=== PATIENT | female | born 1990 | race Caucasian/White ===

== ENCOUNTER 2018-01-22 07:09 | Emergency (ER) | payer SELFPAY ==
[~2018-01-22] VITALS: Ht 162.6 cm; Wt 55.2 kg
[2018-01-22 07:12] VITALS: TEMP 37.2; Ht 162.6 cm; Wt 55.2 kg
[2018-01-22] MEDS ORDERED: ONDANSETRON INJ 2 MG/ML 2 ML VIAL IV STA (07:25)
[2018-01-22] MEDS ORDERED: SODIUM CHLORIDE 0.9% 1000ML 2,000 ML IV STA (07:25)
[2018-01-22] MEDS ORDERED: KETOROLAC TROMETHAMINE 30 MG/ML VIAL IV STA (07:51)
[2018-01-22 08:08] LABS: BASO % 0.3 %; BASO ABS # 0.03 K/uL (0-0.2); EOS % 0.6 %; EOS ABS # 0.06 K/uL (0-0.5); HEMATOCRIT 42.4 % (37-47); HEMOGLOBIN 14.6 g/dL (12.0-16.0); IG# 0.03 K/uL (0.00-0.02); LYMPH % 15.6 %; LYMPH ABS # 1.63 K/uL (1.2-3.4); MEAN CELL VOLUME 89.5 fL (80-100); MEAN CORPUSCULAR HEMOGLOBIN 30.8 pg (25-34); MEAN CORPUSCULAR HGB CONC 34.4 g/dl (32-36); MEAN PLATELET VOLUME 10.5 fL (7.4-10.4); MONO % 3.8 %; NEUT % 79.4 %; PLATELET COUNT 229 K/uL (130-400); RED CELL DISTRIBUTION WIDTH CV 12.7 % (11.5-14.5); RED CELL DISTRIBUTION WIDTH SD 41.4 fL (36.4-46.3); WHITE BLOOD COUNT 10.45 K/uL (4.8-10.8)
[2018-01-22 08:27] LABS: ALBUMIN 4.2 gm/dl (3.4-5.0); CALCIUM 9.2 mg/dl (8.5-10.1); CREATININE 0.76 mg/dl (0.60-1.20); POTASSIUM 3.9 mmol/L (3.5-5.1); TOTAL PROTEIN 7.4 gm/dl (6.4-8.2)
[2018-01-22] MEDS ORDERED: PROMETHAZINE HCL INJ 12.5 MG in SODIUM CHLORIDE 0.9% 50ML 50 ML IV STA (08:40)
--- NOTE | 2018-01-22 08:43 | DIAGNOSTIC IMAGING REPORT ---
CHEST AND ABDOMEN 2 VIEWS HISTORY: Nausea. Vomiting. Diarrhea. COMPARISON: None. FINDINGS: The lungs are clear. The cardiomediastinal silhouette is within normal limits. There is no pneumoperitoneum or pneumatosis. The bowel gas pattern is unremarkable. No evidence for bowel obstruction. No renal or ureteral calculi. IMPRESSION: No acute cardiopulmonary process. No evidence for bowel obstruction. Electronically signed by: Lazaro Mendoza M.D. 01/22/2018 8:42 AM Dictated Date/Time: 01/22/2018 8:41 AM
[2018-01-22] MEDS ORDERED: FENTANYL CITRATE INJ 50 MCG/1 ML 2 ML VIAL IV ONE (08:45)
[2018-01-22] MEDS ORDERED: MoRPHine SULFATE 4 MG/ML 1 ML CARP\\VIAL IV STA (09:27)
[2018-01-22] MEDS ORDERED: DiphenhydrAMINE HCL 50 MG/ML VIAL IV STA (11:02)
[2018-01-22] MEDS ORDERED: SODIUM CHLORIDE 0.9% 1000ML 1,000 ML IV STA (11:02)
[2018-01-22] MEDS ORDERED: PROCHLORPERAZINE 5 MG/ML 2 ML VIAL IV STA (11:02)
[2018-01-22 12:10] VITALS: BP 122/77; PULSE 62; O2SAT 100
[2018-01-22] MEDS ORDERED: PROM25TA9 PO (12:13)
[2018-01-22] MEDS ORDERED: ONDA4TAB10 SL (12:13)
--- NOTE | 2018-01-22 12:14 | EMERGENCY ROOM VISIT NOTE ---
ED Visit Note First contact with patient: 07:16 CHIEF COMPLAINT: Nausea, vomiting, diarrhea and abdominal pain x 2 days HISTORY OF PRESENT ILLNESS: Patient is an otherwise healthy 27-year-old female who presents the emergency department for evaluation of abdominal pain, nausea, vomiting and diarrhea. She states her symptoms started about 1-2 days ago with abdominal pain and nausea. She reports mid abdominal pain that she presently rates a 10/10. Vomiting and diarrhea started this morning. She reports multiple episodes of both. She denies any melena, hematochezia or hematemesis. No documented fevers. No urinary symptoms. She has a history of kidney stones but states that this does not feel similar. 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 She denies any unusual food or water consumption, recent foreign travel or recent antibiotic use. REVIEW OF SYSTEMS: Review of systems as per HPI. All other systems reviewed were negative. 10 systems reviewed. PMH: Electronic medical records are reviewed and summarized as above/below. See Problem List. SOCIAL HISTORY: Patient lives with a roommate in an apartment. Smoker, also uses marijuana occasionally. Recently moved from [place]. PHYSICAL EXAM: Vital Signs: Reviewed Nurse's notes. CONSTITUTIONAL: Patient is an uncomfortable appearing 27-year-old female who is awake and alert and actively vomiting/retching when I enter the exam room. A female friend is at the bedside. EYES: Pupils equal, round, reactive to light and accommodation. EOMs intact without nystagmus. Sclera are anicteric. ENT: Tympanic membranes intact, with normal landmarks. External canals are clear. Oral and nasopharynx are clear. Mucous membranes are moist, no lesions , tongue and gums appear normal. CARDIOVASCULAR: Regular rate and rhythm, with normal S1 and S2, no murmur or gallop or rub is heard. No carotid bruits auscultated. No JVD. Peripheral pulses easily palpable. RESPIRATORY: Breath sounds equal and clear to auscultation without wheezes, rales, or rhonchi heard. Full and equal chest expansion without accessory muscle use or retractions. ABDOMEN: Bowel sounds are present. Abdomen is soft, nondistended, diffusely tender throughout, without guarding, rebound or rigidity. INTEGUMENTARY: No lesions or rash, normal skin turgor. LYMPH: No lymphadenopathy. EMERGENCY DEPARTMENT COURSE: IV lock was initiated and laboratory studies were collected. She was given a 2 L bolus of normal saline solution and medicated with Zofran 4 mg IV. Laboratory studies were collected including CBC with differential, CMP and lipase. Serum hCG was also performed. The patient requested something for pain and was given Toradol 30 mg IV. Acute abdominal series was obtained. Patient returned from x-ray and requesting something additional for pain and ongoing vomiting. She specifically requested morphine stating that is what she had received previously in [place] which had worked well for her. She was given fentanyl 50 mcg IV and Phenergan 12.5 mg IV. Patient's laboratory studies are completely benign. White count is not elevated. H&H is normal. Electrolytes are without significant abnormality. Renal function is normal. Transaminases and pancreatic enzymes are not elevated. Serum hCG is negative. Patient was reassessed and made aware of the results of all of her laboratory and diagnostic imaging studies. She complained of ongoing pain, and at this point was given morphine 4 mg IV. She was able to get up and give a urine sample. Urine dip noted moderate ketones, despite 2 L of IV fluids. Formal urine microscopy notes 3+ ketones, and 2+ occult blood, likely contamination from her menses, otherwise clear without signs of infection. She was given an additional 1 L bolus of normal saline solution. She had an additional episode of bilious vomiting and was given Compazine 10 mg and Benadryl 25 mg IV. The patient was again reassessed, and was resting comfortably in the room. She had been able to sleep, and had no further vomiting. She had no diarrhea in the emergency department therefore a stool sample was not able to be collected for analysis. Supportive care measures were discussed with the patient. She did request something additional for pain prior to discharge, which I politely declined. Given her benign workup and benign abdominal exam at this time, it was not felt that any additional diagnostic imaging studies were indicated. She was encouraged to rest at home, follow a clear liquid diet, and was provided antiemetics that she can use for any ongoing nausea. She was welcome to return to the emergency department for persistent symptoms at which further workup may be indicated. The patient was discharged to home with a female friend in stable condition. Vitals were normal when last checked. She did not wait for her discharge instructions prior to being discharged. Differential diagnoses entertained included infectious versus inflammatory colitis/enteritis, food borne illness, bowel obstruction, pancreatitis, biliary colic, gastritis, esophagitis, cannabinoid related hyperemesis, , ectopic , UTI, pyelonephritis, among others. Medication reconciliation: I attest that I have personally reviewed the patient' s current medication list. Blood pressure screening : Patient was found to have normal blood pressure on screening and does not require follow-up. Patient was reviewed in the [facility] Prescription Drug Monitoring Program, and there were no red flags noted. I was also able to review her [place] with no worrisome findings. CHEST AND ABDOMEN 2 VIEWS HISTORY: Nausea. Vomiting. Diarrhea. COMPARISON: None. FINDINGS: The lungs are clear. The cardiomediastinal silhouette is within normal limits. There is no pneumoperitoneum or pneumatosis. The bowel gas pattern is unremarkable. No evidence for bowel obstruction. No renal or ureteral calculi. IMPRESSION: No acute cardiopulmonary process. No evidence for bowel obstruction. Problem List Medical Problems: (1) Kidney stones Status: Resolved Surgical Problems: (1) History of hand surgery Status: Resolved Current/Historical Medications Scheduled PRN Ondasetron Odt (Zofran Odt), 4 MG SL Q4 PRN for Nausea or Vomiting Promethazine Hcl (Phenergan), 25 MG PO Q4H PRN for Nausea Allergies Coded Allergies: No Known Allergies (Unverified , 01/22/18) Vital Signs Date Time Temp Pulse Resp B/P (MAP) Pulse Ox O2 Delivery O2 Flow Rate FiO2 01/22/18 12:10 62 18 122/77 100 Room Air 01/22/18 11:11 53 16 130/77 98 Room Air 01/22/18 09:41 74 18 105/62 98 Room Air 01/22/18 08:35 55 16 112/77 100 Room Air 01/22/18 07:12 37.2 62 18 124/70 98 Room Air Laboratory Results 01/22/18 07:55 Red Blood Count 4.74, Mean Corpuscular Volume 89.5, Mean Corpuscular Hemoglobin 30.8, Mean Corpuscular Hemoglobin Concent 34.4, Mean Platelet Volume 10.5, Neutrophils (%) (Auto) 79.4, Lymphocytes (%) (Auto) 15.6, Monocytes (%) (Auto) 3.8, Eosinophils (%) (Auto) 0.6, Basophils (%) (Auto) 0.3, Neutrophils # (Auto) 8.30, Lymphocytes # (Auto) 1.63, Monocytes # (Auto) 0.40, Eosinophils # (Auto) 0.06, Basophils # (Auto) 0.03 01/22/18 07:55 Test 01/22/18 07:55 01/22/18 10:25 White Blood Count 10.45 K/uL (4.8-10.8) Red Blood Count 4.74 M/uL (4.2-5.4) Hemoglobin 14.6 g/dL (12.0-16.0) Hematocrit 42.4 % (37-47) Mean Corpuscular Volume 89.5 fL (80-100) Mean Corpuscular Hemoglobin 30.8 pg (25-34) Mean Corpuscular Hemoglobin Concent 34.4 g/dl (32-36) Platelet Count 229 K/uL (130-400) Mean Platelet Volume 10.5 fL (7.4-10.4) Neutrophils (%) (Auto) 79.4 % Lymphocytes (%) (Auto) 15.6 % Monocytes (%) (Auto) 3.8 % Eosinophils (%) (Auto) 0.6 % Basophils (%) (Auto) 0.3 % Neutrophils # (Auto) 8.30 K/uL (1.4-6.5) Lymphocytes # (Auto) 1.63 K/uL (1.2-3.4) Monocytes # (Auto) 0.40 K/uL (0.11-0.59) Eosinophils # (Auto) 0.06 K/uL (0-0.5) Basophils # (Auto) 0.03 K/uL (0-0.2) RDW Standard Deviation 41.4 fL (36.4-46.3) RDW Coefficient of Variation 12.7 % (11.5-14.5) Immature Granulocyte % (Auto) 0.3 % Immature Granulocyte # (Auto) 0.03 K/uL (0.00-0.02) Anion Gap 9.0 mmol/L (3-11) Est Creatinine Clear Calc Drug Dose 96.1 ml/min Estimated GFR () 124.6 Estimated GFR (Non- 107.5 BUN/Creatinine Ratio 20.6 (10-20) Calcium Level 9.2 mg/dl (8.5-10.1) Total Bilirubin 0.6 mg/dl (0.2-1) Aspartate Amino Transf (AST/SGOT) 22 U/L (15-37) Alanine Aminotransferase (ALT/SGPT) 20 U/L (12-78) Alkaline Phosphatase 36 U/L (45-117) Total Protein 7.4 gm/dl (6.4-8.2) Albumin 4.2 gm/dl (3.4-5.0) Globulin 3.2 gm/dl (2.5-4.0) Albumin/Globulin Ratio 1.3 (0.9-2) Lipase 96 U/L (73-393) Human Chorionic Gonadotropin, Qual NEG (NEG) Urine Color YELLOW Urine Appearance CLEAR (CLEAR) Urine pH 6.0 (4.5-7.5) Urine Specific [place] 1.017 (1.000-1.030) Urine Protein NEG (NEG) Urine Glucose (UA) NEG (NEG) Urine Ketones 3+ (NEG) Urine Occult Blood 2+ (NEG) Urine Nitrite NEG (NEG) Urine Bilirubin NEG (NEG) Urine Urobilinogen NEG (NEG) Urine Leukocyte Esterase NEG (NEG) Urine WBC (Auto) 1-5 /hpf (0-5) Urine RBC (Auto) 0-4 /hpf (0-4) Urine Hyaline Casts (Auto) 1-5 /lpf (0-5) Urine Epithelial Cells (Auto) 10-20 /lpf (0-5) Urine Bacteria (Auto) NEG (NEG) Medications Administered Medications (Trade) Dose Ordered Sig/Stacey Route Start Time Stop Time Status Last Admin Dose Admin Sodium Chloride 2,000 ml @ 999 mls/hr Q2H1M STAT IV 01/22/18 07:25 01/22/18 09:25 DC 01/22/18 07:50 999 MLS/HR Ondansetron HCl (Zofran Inj) 4 mg NOW STAT IV 01/22/18 07:25 01/22/18 07:28 DC 01/22/18 07:50 4 MG Ketorolac Tromethamine (Toradol Inj) 30 mg NOW STAT IV 01/22/18 07:51 01/22/18 07:52 DC 01/22/18 07:55 30 MG Promethazine HCl 12.5 mg/Sodium Chloride 50.5 ml @ 204 mls/hr NOW STAT IV 01/22/18 08:40 01/22/18 08:54 DC 01/22/18 08:58 204 MLS/HR Fentanyl Citrate (Fentanyl Inj) 50 mcg NOW ONCE IV 01/22/18 08:45 01/22/18 08:46 DC 01/22/18 08:46 50 MCG Morphine Sulfate (MoRPHine SULFATE INJ) 4 mg NOW STAT IV 01/22/18 09:27 01/22/18 09:28 DC 01/22/18 09:41 4 MG Prochlorperazine Edisylate (Compazine Inj) 10 mg NOW STAT IV 01/22/18 11:02 01/22/18 11:03 DC 01/22/18 11:14 10 MG Diphenhydramine HCl (Benadryl Inj) 25 mg NOW STAT IV 01/22/18 11:02 01/22/18 11:03 DC 01/22/18 11:13 25 MG Sodium Chloride 1,000 ml @ 999 mls/hr Q1H1M STAT IV 01/22/18 11:02 01/22/18 12:02 DC 01/22/18 11:14 999 MLS/HR Departure Information Impression Primary Impression: Nausea, vomiting and diarrhea Prescriptions Promethazine Hcl (Phenergan) 25 Mg Tab 25 MG PO Q4H Y for Nausea, #10 TAB Prov: Jessica Ruano PA 01/22/18 Ondasetron Odt (ZOFRAN ODT) 4 Mg Tab 4 MG SL Q4 Y for Nausea or Vomiting, #10 TAB Prov: Jessica Ruano PA 01/22/18 Referrals No Doctor, Assigned (PCP) Patient Instructions [facility] Additional Instructions DO NOT drive, drink alcohol, operate machinery, or perform dangerous activities today. You were given medications in the ER that can affect your ability to safely function or operate a vehicle. Acetaminophen(Tylenol) may be used for fever or pain. Use 1000mg every eight hours as needed. Avoid using more than 3000mg in a 24 hour period. This is available over the counter. Zofran(odansetron) tablets 4mg: Take one and allow it to dissolve in your mouth every four hours as needed for nausea or vomiting. Phenergan(promethazine) tablets 25mg: Take one every six hours as needed for nausea. Avoid alcohol, operating machinery or dangerous equipment, working on ladders or roofs, DRIVING, or situations where being under the influence may be dangerous. Read all the package inserts or medication information paperwork provided. If you have any questions or concerns call your primary provider, pharmacist or the ER for assistance. Rest and drink plenty of fluids as tolerated. Slow sips of water or sports drinks are recommended instead of large amounts all at once. Continue current medications. Once your stomach is settled start with a clear liquid diet (jello, soup broth, etc.) and then advance as tolerated. You should avoid full, heavy meals for about 24 hrs from the time your symptoms resolved. Return to the ER immediately for worsening or persistent abdominal pain, vomiting, fevers, chest pains, difficulty breathing, black or bloody stools, worsening of your condition, or as needed. Follow up with your primary physician in 1-2 days for a recheck of your current condition.
== END 2018-01-22 12:20 | disposition home or self-care (01) ==
LOC: C.EDB 07:11 → C.EDA 12:20
DX: R11.2 Nausea with vomiting, unspecified (principal); R19.7 Diarrhea, unspecified; F12.90 Cannabis use, unspecified, uncomplicated

== ENCOUNTER 2018-01-22 19:01 | Emergency (ER) | payer SELFPAY ==
[~2018-01-22] VITALS: Ht 162.6 cm; Wt 57.0 kg
[~2018-01-22 19:01] MED LIST: ONDA4TAB10 SL; PROM25TA9 PO
[2018-01-22 19:05] VITALS: BP 132/72; PULSE 60; TEMP 37.3; O2SAT 100; Ht 162.6 cm; Wt 57.0 kg
[2018-01-22] MEDS ORDERED: DiphenhydrAMINE HCL 50 MG/ML VIAL IV STA (19:27)
[2018-01-22] MEDS ORDERED: KETOROLAC TROMETHAMINE 30 MG/ML VIAL IV STA (19:27)
[2018-01-22] MEDS ORDERED: PROCHLORPERAZINE 5 MG/ML 2 ML VIAL IV STA (19:27)
[2018-01-22] MEDS ORDERED: SODIUM CHLORIDE 0.9% 1000ML 1,000 ML IV ONE (19:30)
[2018-01-22] MEDS ORDERED: OPTIRAY 320 IV PRN (19:45)
[2018-01-22 20:16] LABS: HEMATOCRIT 40.5 % (37-47); HEMOGLOBIN 14.1 g/dL (12.0-16.0); IG# 0.01 K/uL (0.00-0.02); LYMPH % 15.7 %; LYMPH ABS # 1.27 K/uL (1.2-3.4); MEAN CELL VOLUME 89.2 fL (80-100); MEAN CORPUSCULAR HEMOGLOBIN 31.1 pg (25-34); MEAN CORPUSCULAR HGB CONC 34.8 g/dl (32-36); MEAN PLATELET VOLUME 10.7 fL (7.4-10.4); MONO % 5.1 %; MONO ABS # 0.41 K/uL (0.11-0.59); NEUT % 79.1 %; NEUT ABS # 6.42 K/uL (1.4-6.5); PLATELET COUNT 182 K/uL (130-400); RED CELL DISTRIBUTION WIDTH CV 12.9 % (11.5-14.5); RED CELL DISTRIBUTION WIDTH SD 41.8 fL (36.4-46.3); WHITE BLOOD COUNT 8.11 K/uL (4.8-10.8)
[2018-01-22 20:54] LABS: ALBUMIN 4.1 gm/dl (3.4-5.0); CALCIUM 8.9 mg/dl (8.5-10.1); CREATININE 0.79 mg/dl (0.60-1.20); TOTAL PROTEIN 7.4 gm/dl (6.4-8.2)
[2018-01-22] MEDS ORDERED: METOCLOPRAMIDE HCL INJ 5 MG/ML 2 ML VIAL IV. STA (21:03)
--- NOTE | 2018-01-22 21:37 | DIAGNOSTIC IMAGING REPORT ---
CT ABD/PELVIS IV CONTRAST ONLY CLINICAL HISTORY: Nausea, vomiting, abdominal pain. COMPARISON STUDY: None. TECHNIQUE: Following the IV administration of 119 mL of [id number]-320, CT scan of the abdomen and pelvis was performed from the lung bases to the proximal femurs. Images are reviewed in the axial, sagittal, and coronal planes. IV contrast was administered without complication. A dose lowering technique was utilized adhering to the principles of ALARA. CT DOSE: 269.31 mGy.cm FINDINGS: Lower chest: The heart is normal in size and configuration, without pericardial effusion. The lung bases and pleural spaces are clear. Liver: There is mild periportal edema, possibly secondary to aggressive hydration. There is slight inhomogeneous hepatic enhancement. No focal masses are evident.. Gallbladder: No calculi are visualized. There is no gallbladder wall thickening. There is minor pericholecystic edema. Spleen: Normal in size and attenuation. Pancreas: Unremarkable. Adrenal glands: Unremarkable. Kidneys: There is symmetric renal cortical enhancement. The kidneys are normal in size without hydronephrosis. Bowel: There are no transition zones indicate bowel obstruction. There are no findings to indicate acute appendicitis. Peritoneum: There is a small amount of free pelvic fluid. No free intraperitoneal air is visualized. Vasculature: The abdominal aorta is normal in course and caliber. Adenopathy: None. Pelvic viscera: There is a 3 cm left ovarian cyst likely functional. Skeletal structures: No destructive osseous lesions are seen. IMPRESSION: 1. Slightly heterogeneous hepatic enhancement but no focal masses identified 2. Periportal edema possibly secondary to hydration 3. No evidence of bowel obstruction. No evidence of free air 4. No evidence of acute appendicitis 5. 3 cm left ovarian cyst likely functional 6. Small amount of free pelvic fluid Electronically signed by: Abdoul Cheema M.D. 01/22/2018 9:36 PM Dictated Date/Time: 01/22/2018 9:30 PM
--- NOTE | 2018-01-22 23:22 | EMERGENCY ROOM VISIT NOTE ---
History First contact with patient: 19:11 Chief Complaint: ABDOMINAL PAIN Stated Complaint: VOMITING ABN PAIN Nursing Triage Summary: Pt reports she was here this morning with left sided abdominal pain and vomiting. Pt remains with same. History of Present Illness The patient is a 27 year old female who presents to the Emergency Room with complaints of generalized abdominal pain, nausea, and vomiting. She rates her current discomfort a 9/10. The patient was seen here at this facility earlier today, where she had lab work and plain films performed that were essentially normal. She was given antiemetics and pain medication and felt much better at the time of her discharge. The patient states that a few hours later her pain medication wore off, and her symptoms returned. She has not had fever or chills. She is having difficulty tolerating food or fluids because of the nausea and vomiting. The patient states that her symptoms are now back to where they were earlier today. She has had similar episodes like this in the past. She does not have a primary care physician locally as she recently moved to the area. Review of Systems More than 10 systems were reviewed and otherwise negative with the exception of history of present illness. Past Medical/Surgical History Medical Problems: (1) Kidney stones (2) No Known Active Medical Problems Surgical Problems: (1) History of hand surgery Family History No pertinent family history Social History Smoking Status: Current Every Day Smoker Housing Status: lives with friends Current/Historical Medications Scheduled PRN Ondasetron Odt (Zofran Odt), 4 MG SL Q4 PRN for Nausea or Vomiting Promethazine Hcl (Phenergan), 25 MG PO Q4H PRN for Nausea Physical Exam Vital Signs Date Time Temp Pulse Resp B/P (MAP) Pulse Ox O2 Delivery O2 Flow Rate FiO2 18 19:05 37.3 60 20 132/72 100 Room Air Physical Exam VITALS: Vitals are noted on the nurse's note and reviewed by myself. Vital signs stable. GENERAL: White female who appears in no acute distress MOUTH: Mucous membranes moist. Tonsils are not enlarged. Pharynx without erythema, blood, or exudate. Uvula midline. Airway patent. NECK: Supple without nuchal rigidity. No lymphadenopathy. No thyromegaly. Cervical spine is nontender. HEART: Regular rate and rhythm without murmurs gallops or rubs. LUNGS: Clear to auscultation bilaterally without wheezes, rales or rhonchi. No retractions or accessory muscle use. ABDOMEN: Positive normal bowel sounds x 4. Soft, nontender, without masses or organomegaly. No guarding or rebound tenderness. MUSCULOSKELETAL: No muscle atrophy, erythema, or edema noted. Full range of motion in all extremities. Medical Decision & Procedures ER Provider Diagnostic Interpretation: CT ABD/PELVIS IV CONTRAST ONLY CLINICAL HISTORY: Nausea, vomiting, abdominal pain. COMPARISON STUDY: None. TECHNIQUE: Following the IV administration of 119 mL of Optiray-320, CT scan of the abdomen and pelvis was performed from the lung bases to the proximal femurs. Images are reviewed in the axial, sagittal, and coronal planes. IV contrast was administered without complication. A dose lowering technique was utilized adhering to the principles of ALARA. CT DOSE: 269.31 mGy.cm FINDINGS: Lower chest: The heart is normal in size and configuration, without pericardial effusion. The lung bases and pleural spaces are clear. Liver: There is mild periportal edema, possibly secondary to aggressive hydration. There is slight inhomogeneous hepatic enhancement. No focal masses are evident.. Gallbladder: No calculi are visualized. There is no gallbladder wall thickening. There is minor pericholecystic edema. Spleen: Normal in size and attenuation. Pancreas: Unremarkable. Adrenal glands: Unremarkable. Kidneys: There is symmetric renal cortical enhancement. The kidneys are normal in size without hydronephrosis. Bowel: There are no transition zones indicate bowel obstruction. There are no findings to indicate acute appendicitis. Peritoneum: There is a small amount of free pelvic fluid. No free intraperitoneal air is visualized. Vasculature: The abdominal aorta is normal in course and caliber. Adenopathy: None. Pelvic viscera: There is a 3 cm left ovarian cyst likely functional. Skeletal structures: No destructive osseous lesions are seen. IMPRESSION: 1. Slightly heterogeneous hepatic enhancement but no focal masses identified 2. Periportal edema possibly secondary to hydration 3. No evidence of bowel obstruction. No evidence of free air 4. No evidence of acute appendicitis 5. 3 cm left ovarian cyst likely functional 6. Small amount of free pelvic fluid Laboratory Results 01/22/18 20:00 Red Blood Count 4.54, Mean Corpuscular Volume 89.2, Mean Corpuscular Hemoglobin 31.1, Mean Corpuscular Hemoglobin Concent 34.8, Mean Platelet Volume 10.7, Neutrophils (%) (Auto) 79.1, Lymphocytes (%) (Auto) 15.7, Monocytes (%) (Auto) 5.1, Eosinophils (%) (Auto) 0.0, Basophils (%) (Auto) 0.0, Neutrophils # (Auto) 6.42, Lymphocytes # (Auto) 1.27, Monocytes # (Auto) 0.41, Eosinophils # (Auto) 0.00, Basophils # (Auto) 0.00 01/22/18 20:00 Test 01/22/18 20:00 01/22/18 20:46 White Blood Count 8.11 K/uL (4.8-10.8) Red Blood Count 4.54 M/uL (4.2-5.4) Hemoglobin 14.1 g/dL (12.0-16.0) Hematocrit 40.5 % (37-47) Mean Corpuscular Volume 89.2 fL (80-100) Mean Corpuscular Hemoglobin 31.1 pg (25-34) Mean Corpuscular Hemoglobin Concent 34.8 g/dl (32-36) Platelet Count 182 K/uL (130-400) Mean Platelet Volume 10.7 fL (7.4-10.4) Neutrophils (%) (Auto) 79.1 % Lymphocytes (%) (Auto) 15.7 % Monocytes (%) (Auto) 5.1 % Eosinophils (%) (Auto) 0.0 % Basophils (%) (Auto) 0.0 % Neutrophils # (Auto) 6.42 K/uL (1.4-6.5) Lymphocytes # (Auto) 1.27 K/uL (1.2-3.4) Monocytes # (Auto) 0.41 K/uL (0.11-0.59) Eosinophils # (Auto) 0.00 K/uL (0-0.5) Basophils # (Auto) 0.00 K/uL (0-0.2) RDW Standard Deviation 41.8 fL (36.4-46.3) RDW Coefficient of Variation 12.9 % (11.5-14.5) Immature Granulocyte % (Auto) 0.1 % Immature Granulocyte # (Auto) 0.01 K/uL (0.00-0.02) Anion Gap 10.0 mmol/L (3-11) Est Creatinine Clear Calc Drug Dose 92.4 ml/min Estimated GFR () 118.9 Estimated GFR (Non- 102.6 BUN/Creatinine Ratio 15.2 (10-20) Calcium Level 8.9 mg/dl (8.5-10.1) Total Bilirubin 0.6 mg/dl (0.2-1) Aspartate Amino Transf (AST/SGOT) U/L (15-37) Alanine Aminotransferase (ALT/SGPT) 25 U/L (12-78) Alkaline Phosphatase 36 U/L (45-117) Total Protein 7.4 gm/dl (6.4-8.2) Albumin 4.1 gm/dl (3.4-5.0) Globulin 3.3 gm/dl (2.5-4.0) Albumin/Globulin Ratio 1.3 (0.9-2) Lipase 77 U/L (73-393) Urine Color YELLOW Urine Appearance CLEAR (CLEAR) Urine pH 5.5 (4.5-7.5) Urine Specific [place] 1.030 (1.000-1.030) Urine Protein 1+ (NEG) Urine Glucose (UA) NEG (NEG) Urine Ketones 4+ (NEG) Urine Occult Blood 3+ (NEG) Urine Nitrite NEG (NEG) Urine Bilirubin NEG (NEG) Urine Urobilinogen NEG (NEG) Urine Leukocyte Esterase NEG (NEG) Urine WBC (Auto) 1-5 /hpf (0-5) Urine RBC (Auto) 5-10 /hpf (0-4) Urine Hyaline Casts (Auto) 0 /lpf (0-5) Urine Epithelial Cells (Auto) >30 /lpf (0-5) Urine Bacteria (Auto) NEG (NEG) Urine Renal Epithelial Cells /lpf (0-5) Urine Mucus PRESENT (NONE PRSENT) Urine Opiates Screen POS (NEG) Urine Methadone, Qualitative NEG (NEG) Urine Barbiturates NEG (NEG) Urine Phencyclidine (PCP) Level NEG (NEG) Ur Amphetamine/Methamphetamine NEG (NEG) MDMA (Ecstasy) Screen NEG (NEG) Urine Benzodiazepines Screen NEG (NEG) Urine Cocaine Metabolite NEG (NEG) Urine Marijuana (THC) POS (NEG) Medications Administered Medications (Trade) Dose Ordered Sig/Stacey Route Start Time Stop Time Status Last Admin Dose Admin Diphenhydramine HCl (Benadryl Inj) 50 mg NOW STAT IV 01/22/18 19:27 01/22/18 19:31 DC 01/22/18 20:23 50 MG Prochlorperazine Edisylate (Compazine Inj) 10 mg NOW STAT IV 01/22/18 19:27 01/22/18 19:31 DC 01/22/18 20:22 10 MG Ketorolac Tromethamine (Toradol Inj) 30 mg NOW STAT IV 01/22/18 19:27 01/22/18 19:31 DC 01/22/18 20:23 30 MG Sodium Chloride 1,000 ml @ 999 mls/hr Q1H1M ONCE IV 01/22/18 19:30 01/22/18 20:30 DC 01/22/18 20:23 999 MLS/HR Metoclopramide HCl (Reglan Inj) 10 mg NOW STAT IV. 01/22/18 21:03 01/22/18 21:05 DC 01/22/18 21:07 10 MG ED Course Physical exam and history were performed. Nursing notes, EMR, and Medication List were personally reviewed. Patient appears to have abdominal pain, nausea, and vomiting bring her back to the emergency department. The patient does not appear toxic on examination. IV access was established and labs are obtained. She was hydrated with normal saline and given IV Toradol, IV Benadryl, and IV Compazine. I did elect to perform a CT scan with IV and oral contrast because of her return visit and persistent abdominal pain. The patient's blood work is as above and was reviewed. She does not have a significantly elevated white blood cell count, gross anemia, bandemia, or significant electrolyte imbalance. Urine is with some signs of dehydration but no obvious infection with culture pending. Drug of abuse screen was positive for marijuana, and opioids however she was given morphine earlier today. All in all her labs are essentially identical to earlier blood work today. The patient was not able to tolerate the oral contrast for the CT scan. She did have 2 episodes of emesis while drinking the oral contrast, and I did give her a dose of Reglan. Patient was scanned with IV contrast only because she could not tolerate the oral contrast, and the results are as above. The CT scan does not show an obvious surgical process such as appendicitis or obstruction. She does not appear to have colitis. The patient does have a benign-appearing ovarian cyst, and on repeat abdominal exam she is without significant reproducible tenderness. I had a lengthy discussion with the patient regarding her findings today. Clinically I suspect that her symptoms are related to cyclic vomiting for marijuana use. She certainly could have a viral or foodborne illness as well. Overall she should do well with conservative measures and has previously been prescribed Zofran and Phenergan. She was asked to continue to use these. The patient does not have primary care services established at this time and I did engage case management who provided her a list of resources locally to help establish care. The patient was asked to abstain from marijuana use and was otherwise invited back to the ER with any new, worsening, or concerning symptoms. The chart was completed utilizing [employer] Voice Recognition Software. Grammatical errors, random word insertions, pronoun errors, and incomplete sentences are an occasional consequence of this system due to software limitations, ambient noise, and hardware issues. Any formal questions or concerns about the content, text, or information contained within the body of this dictation should be directly addressed to the provider for clarification. . Medical Decision Differential diagnosis: Etiologies such as gastroenteritis, food borne illness, infections, appendicitis , diverticulitis, inflammatory bowel disease, obstruction, GI bleed, biliary pathology, as well as others were entertained. Impression Primary Impression: Abdominal pain Additional Impressions: Marijuana use Nausea and vomiting Departure Information Dispostion Home / Self-Care Condition GOOD Forms HOME CARE DOCUMENTATION FORM, IMPORTANT VISIT INFORMATION Patient Instructions My [facility] Additional Instructions You were seen and evaluated today on an emergency basis only. This is not a substitute for, or an effort to provide, complete comprehensive medical care. It is not possible to recognize and treat all injuries or illnesses in a single emergency department visit. For this reason it is recommended that you followup with a primary care physician as soon as possible for ongoing care and evaluation. Please use the resources provided to you by case management to help establish with a primary care physician. Take your Zofran and Phenergan as previously directed. Avoid marijuana as this can cause her symptoms. Drink plenty of fluids and remain well-hydrated You are welcome to return to the emergency department anytime with new, worsening, or concerning symptoms. Problem Qualifiers
== END 2018-01-22 22:27 | disposition home or self-care (01) ==
LOC: C.EDB 19:03 → C.EDC 22:27
DX: R10.9 Unspecified abdominal pain (principal); F12.90 Cannabis use, unspecified, uncomplicated; R11.2 Nausea with vomiting, unspecified; F17.200 Nicotine dependence, unspecified, uncomplicated

== ENCOUNTER 2018-01-25 13:32 | Emergency (ER) | payer SELFPAY ==
[~2018-01-25] VITALS: Ht 162.6 cm; Wt 55.4 kg
[2018-01-25 13:37] VITALS: TEMP 37; Ht 162.6 cm; Wt 55.4 kg
[2018-01-25] MEDS ORDERED: SODIUM CHLORIDE 0.9% 1000ML 2,000 ML IV STA (14:07)
[2018-01-25] MEDS ORDERED: KETOROLAC TROMETHAMINE 30 MG/ML VIAL IV STA (14:07)
[2018-01-25] MEDS ORDERED: ONDANSETRON INJ 2 MG/ML 2 ML VIAL IV STA (14:07)
[2018-01-25] MEDS ORDERED: ACET300T3 PO (14:16)
[2018-01-25 15:12] LABS: BASO % 0.1 %; BASO ABS # 0.01 K/uL (0-0.2); EOS % 0.1 %; EOS ABS # 0.01 K/uL (0-0.5); HEMOGLOBIN 13.8 g/dL (12.0-16.0); IG# 0.01 K/uL (0.00-0.02); LYMPH % 27.2 %; LYMPH ABS # 1.98 K/uL (1.2-3.4); MEAN CELL VOLUME 87.8 fL (80-100); MEAN CORPUSCULAR HEMOGLOBIN 31.1 pg (25-34); MEAN CORPUSCULAR HGB CONC 35.4 g/dl (32-36); MEAN PLATELET VOLUME 10.7 fL (7.4-10.4); MONO % 7.3 %; MONO ABS # 0.53 K/uL (0.11-0.59); NEUT % 65.2 %; NEUT ABS # 4.75 K/uL (1.4-6.5); PLATELET COUNT 181 K/uL (130-400); RED CELL DISTRIBUTION WIDTH CV 12.8 % (11.5-14.5); RED CELL DISTRIBUTION WIDTH SD 41.4 fL (36.4-46.3); WHITE BLOOD COUNT 7.29 K/uL (4.8-10.8)
[2018-01-25 15:20] VITALS: O2SAT 99
[2018-01-25 15:42] LABS: ALBUMIN 4.3 gm/dl (3.4-5.0); CALCIUM 9.1 mg/dl (8.5-10.1); CREATININE 0.73 mg/dl (0.60-1.20); POTASSIUM 2.8 mmol/L (3.5-5.1); TOTAL PROTEIN 7.4 gm/dl (6.4-8.2)
[2018-01-25] MEDS ORDERED: POTASSIUM CHLORIDE 10 MEQ TABCR PO STA (17:04)
[2018-01-25] MEDS ORDERED: MoRPHine SULFATE 4 MG/ML 1 ML CARP\\VIAL IV STA (17:04)
--- NOTE | 2018-01-25 17:43 | DIAGNOSTIC IMAGING REPORT ---
TRANSVAG-FEMALE PELVIS HISTORY: 27 years-old Female rlq abd pain acute right lower quadrant abdominal pain COMPARISON: CT abdomen and pelvis 01/22/2018 TECHNIQUE: Multiple real-time sonographic images of the deep pelvic structures were obtained transabdominally and transvaginally assessing grayscale appearance, color and spectral flow FINDINGS: TRANSABDOMINAL: Anteflexed uterus measures 6.1 x 3.0 x 4.0 cm. Endometrium measures 0.2 cm. TRANSVAGINAL: Uterus measures 6.2 x 3.9 x 2.4 cm. No myometrial mass lesions. Endometrium measures 0.1 cm. Small nabothian cysts noted. Right ovary measures 3.5 x 2.1 x 1.6 cm and demonstrates arterial inflow and venous outflow. Trace free pelvic fluid within the cul-de-sac and adjacent to the right adnexum. Left ovary measures 3.6 x 2.6 x 2.2 cm and also demonstrates arterial inflow and venous outflow. There is a complex slightly hypoechoic structure about the left ovary, 2.6 x 2.3 x 1.5 cm without internal vascularity identified. IMPRESSION: 1. 2.6 cm complex lesion of the left ovary suggests hemorrhagic cyst. No evidence of ovarian torsion. 2. Mild free pelvic fluid, likely physiologic. 3. Unremarkable sonographic appearance of the uterus, endometrium and right ovary. The above report was generated using voice recognition software. It may contain grammatical, syntax or spelling errors. Electronically signed by: Billy Maldonado M.D. 01/25/2018 5:42 PM Dictated Date/Time: 01/25/2018 5:37 PM
[2018-01-25 19:04] VITALS: BP 132/71; PULSE 49
--- NOTE | 2018-01-25 21:06 | EMERGENCY ROOM VISIT NOTE ---
History Report prepared by Antonella: Hipolito Swartz Under the Supervision of: Dr. Bryn Sandoval D.O. First contact with patient: 13:59 Chief Complaint: ABDOMINAL PAIN Stated Complaint: pain in right side Nursing Triage Summary: Patient presents with c/o right lower abdominal pain ambulatory to triage States she was evaluated in the ED twice on 01/22/18 for same symptoms She reports ovarian cyst was diagnosed Pain is worse, notes nausea and states she is unable to eat or drink due to pain History of Present Illness The patient is a 27 year old female who presents to the Emergency Room with complaints of worsening right-sided abdominal pain beginning three days ago. The patient states that she was here three days ago for similar symptoms and was discharged home. Per EMR, the patient had a CT done and was found to have a left ovarian cyst. The patient notes that her current pain feels the same as when she first came in, but reports that it has since worsened. The patient states that when she came in three days ago, her pain radiated across to her left side. She notes that her current pain is only on her right side and does not radiate to the left. She rates her pain as a 10/10. She also complains of persistent diarrhea beginning three days ago and the inability to hear out of her left ear. She reports that her last bowel movement was last night. The patient states that she has not been able to sleep and eat much due to her pain. She denies any urinary symptoms, cough, rhinorrhea, CP, and vaginal bleeding/discharge. She notes that her last period was three days ago and that there is no chance that she is . She reports that she does not have a history of previous abdominal surgeries. Source of History: patient, other (EMR) Onset: three days ago Position: abdomen (right-sided) Symptom Intensity: 10/10 Timing: worsening Associated Symptoms: + diarrhea, No cough, No chest pain, No urinary symptoms Note: The patient states that she cannot hear out of her left ear. She also complains of a decreased appetite and a decreased amount of sleep. She denies any rhinorrhea and vaginal bleeding/discharge. Review of Systems See HPI for pertinent positives & negatives. A total of 10 systems reviewed and were otherwise negative. Past Medical & Surgical Medical Problems: (1) Kidney stones (2) Left ovarian cyst Surgical Problems: (1) History of hand surgery Family History No pertinent family history stated. Social History Smoking Status: Current Every Day Smoker Marital Status: single Housing Status: lives with friends Occupation Status: employed Current/Historical Medications Scheduled PRN Acetaminophen/Codeine (Tylenol W/Codeine #3), 1 TAB PO Q4H PRN for Pain Ondasetron Odt (Zofran Odt), 4 MG SL Q4 PRN for Nausea or Vomiting Promethazine Hcl (Phenergan), 25 MG PO Q4H PRN for Nausea Allergies Coded Allergies: No Known Allergies (Unverified , 01/25/18) Physical Exam Vital Signs Date Time Temp Pulse Resp B/P (MAP) Pulse Ox O2 Delivery O2 Flow Rate FiO2 01/25/18 19:04 49 132/71 01/25/18 16:58 47 15 125/77 01/25/18 15:20 44 14 115/72 99 Room Air 01/25/18 13:37 37.0 54 16 102/59 97 Room Air Physical Exam GENERAL: Sitting up in bed, alert, well appearing, well nourished, no distress, non-toxic EYE EXAM: normal conjunctiva. OROPHARYNX: no exudate, no erythema, lips, buccal mucosa, and tongue normal and mucous membranes are moist NECK: supple, no nuchal rigidity, no adenopathy, non-tender LUNGS: Clear to auscultation. Normal chest wall mechanics HEART: no murmurs, S1 normal and S2 normal ABDOMEN: abdomen soft, normo-active bowel sounds, no masses, no rebound or guarding, faint tenderness to RLQ. BACK: Back is symmetrical on inspection and there is no deformity, no midline tenderness, no CVA tenderness. SKIN: no rashes and no bruising UPPER EXTREMITIES: upper extremities are grossly normal. LOWER EXTREMITIES: No pitting edema. NEURO EXAM: Normal sensorium, cranial nerves II-XII grossly intact, normal speech, no gross weakness of arms, no gross weakness of legs. Medical Decision & Procedures ER Provider Diagnostic Interpretation: Radiology results as stated below per my review and the radiologist's interpretation: TRANSVAG-FEMALE PELVIS FINDINGS: TRANSABDOMINAL: Anteflexed uterus measures 6.1 x 3.0 x 4.0 cm. Endometrium measures 0.2 cm. TRANSVAGINAL: Uterus measures 6.2 x 3.9 x 2.4 cm. No myometrial mass lesions. Endometrium measures 0.1 cm. Small nabothian cysts noted. Right ovary measures 3.5 x 2.1 x 1.6 cm and demonstrates arterial inflow and venous outflow. Trace free pelvic fluid within the cul-de-sac and adjacent to the right adnexum. Left ovary measures 3.6 x 2.6 x 2.2 cm and also demonstrates arterial inflow and venous outflow. There is a complex slightly hypoechoic structure about the left ovary, 2.6 x 2.3 x 1.5 cm without internal vascularity identified. IMPRESSION: 1. 2.6 cm complex lesion of the left ovary suggests hemorrhagic cyst. No evidence of ovarian torsion. 2. Mild free pelvic fluid, likely physiologic. 3. Unremarkable sonographic appearance of the uterus, endometrium and right ovary. The above report was generated using voice recognition software. It may contain grammatical, syntax or spelling errors. Electronically signed by: Billy Maldonado M.D. 01/25/2018 5:42 PM Laboratory Results 01/25/18 14:35 Red Blood Count 4.44, Mean Corpuscular Volume 87.8, Mean Corpuscular Hemoglobin 31.1, Mean Corpuscular Hemoglobin Concent 35.4, Mean Platelet Volume 10.7, Neutrophils (%) (Auto) 65.2, Lymphocytes (%) (Auto) 27.2, Monocytes (%) (Auto) 7.3, Eosinophils (%) (Auto) 0.1, Basophils (%) (Auto) 0.1, Neutrophils # (Auto) 4.75, Lymphocytes # (Auto) 1.98, Monocytes # (Auto) 0.53, Eosinophils # (Auto) 0.01, Basophils # (Auto) 0.01 01/25/18 14:35 Test 01/25/18 14:30 01/25/18 14:35 Urine Color DK YELLOW Urine Appearance CLOUDY (CLEAR) Urine pH 5.5 (4.5-7.5) Urine Specific [place] > 1.045 (1.000-1.030) Urine Protein 2+ (NEG) Urine Glucose (UA) TRACE (NEG) Urine Ketones TRACE (NEG) Urine Occult Blood 1+ (NEG) Urine Nitrite POS (NEG) Urine Bilirubin NEG (NEG) Urine Urobilinogen NEG (NEG) Urine Leukocyte Esterase NEG (NEG) Urine WBC (Auto) 1-5 /hpf (0-5) Urine RBC (Auto) 0-4 /hpf (0-4) Urine Hyaline Casts (Auto) 1-5 /lpf (0-5) Urine Epithelial Cells (Auto) >30 /lpf (0-5) Urine Bacteria (Auto) NEG (NEG) Urine Crystals CALCIUM OXALATE (NONE Urine Pathogenic Casts /lpf (0) Urine Mucus PRESENT (NONE PRSENT) Urine Test NEG (NEG) White Blood Count 7.29 K/uL (4.8-10.8) Red Blood Count 4.44 M/uL (4.2-5.4) Hemoglobin 13.8 g/dL (12.0-16.0) Hematocrit 39.0 % (37-47) Mean Corpuscular Volume 87.8 fL (80-100) Mean Corpuscular Hemoglobin 31.1 pg (25-34) Mean Corpuscular Hemoglobin Concent 35.4 g/dl (32-36) Platelet Count 181 K/uL (130-400) Mean Platelet Volume 10.7 fL (7.4-10.4) Neutrophils (%) (Auto) 65.2 % Lymphocytes (%) (Auto) 27.2 % Monocytes (%) (Auto) 7.3 % Eosinophils (%) (Auto) 0.1 % Basophils (%) (Auto) 0.1 % Neutrophils # (Auto) 4.75 K/uL (1.4-6.5) Lymphocytes # (Auto) 1.98 K/uL (1.2-3.4) Monocytes # (Auto) 0.53 K/uL (0.11-0.59) Eosinophils # (Auto) 0.01 K/uL (0-0.5) Basophils # (Auto) 0.01 K/uL (0-0.2) RDW Standard Deviation 41.4 fL (36.4-46.3) RDW Coefficient of Variation 12.8 % (11.5-14.5) Immature Granulocyte % (Auto) 0.1 % Immature Granulocyte # (Auto) 0.01 K/uL (0.00-0.02) Anion Gap 8.0 mmol/L (3-11) Est Creatinine Clear Calc Drug Dose 100.0 ml/min Estimated GFR () 130.8 Estimated GFR (Non- 112.9 BUN/Creatinine Ratio 18.1 (10-20) Calcium Level 9.1 mg/dl (8.5-10.1) Total Bilirubin 0.7 mg/dl (0.2-1) Direct Bilirubin 0.2 mg/dl (0-0.2) Aspartate Amino Transf (AST/SGOT) 24 U/L (15-37) Alanine Aminotransferase (ALT/SGPT) 38 U/L (12-78) Alkaline Phosphatase 34 U/L (45-117) Total Protein 7.4 gm/dl (6.4-8.2) Albumin 4.3 gm/dl (3.4-5.0) Lipase 77 U/L (73-393) Laboratory results per my review. Medications Administered Medications (Trade) Dose Ordered Sig/Stacey Route Start Time Stop Time Status Last Admin Dose Admin Sodium Chloride 2,000 ml @ 999 mls/hr Q2H1M STAT IV 01/25/18 14:07 01/25/18 16:07 DC 01/25/18 15:06 999 MLS/HR Ketorolac Tromethamine (Toradol Inj) 30 mg NOW STAT IV 01/25/18 14:07 01/25/18 14:10 DC 01/25/18 15:05 30 MG Ondansetron HCl (Zofran Inj) 4 mg NOW STAT IV 01/25/18 14:07 01/25/18 14:10 DC 01/25/18 15:04 4 MG Potassium Chloride (Klor-Con M10) 40 meq NOW STAT PO 01/25/18 17:04 01/25/18 17:05 DC 01/25/18 17:19 40 MEQ Morphine Sulfate (MoRPHine SULFATE INJ) 4 mg NOW STAT IV 01/25/18 17:04 01/25/18 17:05 DC 01/25/18 17:20 4 MG ED Course ED COURSE: Vital signs were reviewed and were shown to be normal. The patients medical record was reviewed The above diagnostic studies were performed and reviewed. ED treatments and interventions as stated above. 1400: The patient was evaluated in room C9. A complete history and physical examination was performed. 1407: Zofran Inj 4mg IV, Toradol Inj 30mg IV, Sodium Chloride 2000 ml @ 999 mls/ hr IV 1704: Morphine Sulfate 4mg IV, Potassium Chloride 40 meq PO 1719: I reevaluated and updated the patient. 1832: Upon reevaluation, the patient is stable. I discussed my findings with the patient and she understands and agrees with the treatment plan. Based on the patients age, coexisting illnesses, exam and lab findings the decision to treat as an outpatient was made. The patient remained stable while under my care. The patient appeared well at the time of discharge. Medical Decision Differential diagnoses includes but is not limited to gastritis, peptic ulcer disease, GERD, gallbladder disease, pancreatitis, small bowel obstruction, acute coronary syndrome, pericarditis, ischemic bowel, irritable bowel disease, irritable bowel syndrome, appendicitis, diverticulitis, malignancy, hernia, urinary tract infection, torsion, /ectopic , perforation, trauma, infectious. Patient is a 27-year-old female who presents the ER for right lower quadrant abdominal pain. She notes that this is the same exact pain that she was seen here twice for on the except at that time it was in the right lower quadrant but slightly more diffuse. She had CT which was completely negative. CBC along with BMP shows a mild hypokalemia. Potassium was repeated. LFTs, bilirubin and lipase was unremarkable. UA negative without white cells. was negative. Patient's exam is fairly benign when distracted. She was given fluids, Toradol 1 dose of morphine. She was updated at bedside following an ultrasound which shows left ovarian hemorrhagic cyst. Do question if the hemorrhagic cyst is causing her pain although on the left. As this pain is been present for the past 4 days would expect a leukocytosis of appendicitis. Also would expect some findings on CT imaging for the pain as well. Edison there is no reason to repeat imaging at this time. Discussed with Pt concerning signs and symptoms to watch out for. Pt was instructed to follow up with their PCP and discussed with the patient their option to return to the ED at anytime for persistent or worsening symptoms. The appropriate anticipatory guidance and out-patient management, including indications for return to the emergency department, were explained at length to the patient and understood. Medication Reconcilliation Current Medication List: was personally reviewed by me Blood Pressure Screening Patient's blood pressure: Elevated blood pressure Blood pressure disposition: Elevated BP felt to be situational Impression Primary Impression: Ovarian cyst Additional Impression: Abdominal pain Scribe Attestation The scribe's documentation has been prepared under my direction and personally reviewed by me in its entirety. I confirm that the note above accurately reflects all work, treatment, procedures, and medical decision making performed by me. Departure Information Dispostion Home / Self-Care Referrals No Doctor, Assigned (PCP) Forms HOME CARE DOCUMENTATION FORM, IMPORTANT VISIT INFORMATION Patient Instructions My [facility] Additional Instructions Please follow up with your primary care doctor with in the next 24 hours. Any worsening of your symptoms, please return to the ED immediately. This includes any fevers greater than 100.4, worsening pain, chest pain, shortness breath, persistent nausea, vomiting, unable to eat or drink, or any other concerning signs or symptoms from your standpoint. Please take Motrin or Tylenol as needed for pain. Problem Qualifiers Primary Impression: Ovarian cyst Laterality: left Qualified Codes: N83.202 - Unspecified ovarian cyst, left side Additional Impression: Abdominal pain Abdominal location: right lower quadrant Qualified Codes: R10.31 - Right lower quadrant pain
== END 2018-01-25 18:50 | disposition home or self-care (01) ==
LOC: C.EDB 13:33 → C.EDC 18:50
DX: N83.202 Unspecified ovarian cyst, left side (principal); R10.31 Right lower quadrant pain; F17.200 Nicotine dependence, unspecified, uncomplicated; Z87.442 Personal history of urinary calculi

== ENCOUNTER 2018-04-17 10:57 | Emergency (ER) | payer OTHER ==
[~2018-04-17] VITALS: Ht 162.6 cm; Wt 57.2 kg
[~2018-04-17 10:57] MED LIST changes: -ONDA4TAB10 SL; +OXYC-90 PO; -PROM25TA9 PO; +[UNRECOGNIZED DRUG - CODE] PO
[2018-04-17 11:13] VITALS: TEMP 36.8; Ht 162.6 cm; Wt 57.2 kg
[2018-04-17] MEDS ORDERED: OXYCODONE HCL IR 5 MG TAB (IMMEDIATE RELEASE) PO STA (11:33)
--- NOTE | 2018-04-17 11:40 | EMERGENCY ROOM VISIT NOTE ---
History First contact with patient: 11:24 Chief Complaint: ABDOMINAL PAIN Stated Complaint: OVARIAN RUPTURED CYST PAIN Nursing Triage Summary: Patient reports abd pain. History of ruptured ovarian cysts. Recently started on control. Has been spotting for almost the whole month since starting the control. Pain on both sides. Does not have OBGYN here in town. Scheduled for appointment with OBGYN in May. Denies nausea or vomiting. History of Present Illness The patient is a 27 year old female who presents to the Emergency Room via private vehicle with complaints of "ovarian ruptured cyst, pain". The patient states that she has a history of bilateral ovarian cysts of which she has been seen here numerous times before. She states that she has a scheduled follow-up appointment with [facility] on May 18. She states that she also has been taking the control she was prescribed which has caused minimal spotting throughout the month. She denies any fevers, chills, nausea, chance of , vaginal discharge, chance of such which has been infection. She notes that the pain she is experiencing now began yesterday in the pelvic region from the left right side and will alternate depending upon her position. Most comfortable position is a position. Her pain is a 10/10. Review of Systems A complete 10-point Review of Systems was discussed with the patient, with pertinent positives and negatives listed in the History of Present Illness. All remaining Review of Systems questions can be considered negative unless otherwise specified. Past Medical/Surgical History Medical Problems: (1) Kidney stones (2) Left ovarian cyst Surgical Problems: (1) History of hand surgery Social History Smoking Status: Current Every Day Smoker Alcohol Use: none Marital Status: single Housing Status: lives with friends Occupation Status: employed Current/Historical Medications Scheduled Norethindrone & Eth Estradiol (Ortho-Novum 1-35 mg-Mcg), 1 TAB PO DAILY Scheduled PRN Oxycodone Ir (Roxicodone Ir), 1 TAB PO Q6 PRN for Pain Physical Exam Vital Signs Date Time Temp Pulse Resp B/P (MAP) Pulse Ox O2 Delivery O2 Flow Rate FiO2 04/17/18 14:57 77 130/79 96 04/17/18 12:57 72 116/69 96 Room Air 04/17/18 11:13 36.8 98 18 112/69 99 Room Air Physical Exam VITAL SIGNS - Vital signs and nursing notes were reviewed. Stable. Afebrile. GENERAL -27-year-old female appearing her stated age who is in no acute distress. Communicates well with provider and answers questions appropriately. SKIN - Without rashes. No meningeal or petechial rash. HEAD - NC/AT. EYES - PERRL with EOMI bilaterally. Sclera anicteric. EARS - No deformities of external structures noted on gross examination bilaterally. NOSE - Midline and without cyanosis. No epistaxis or purulent drainage noted. Septum midline without deviation or septal hematoma noted. MOUTH/OROPHARYNX - Without perioral cyanosis. LUNGS - Chest wall symmetric without accessory muscle use, intercostals retractions, or central cyanosis. Normal vesicular breath sounds CTA B/L. No wheezes, rales, or rhonchi appreciated. CARDIAC - RRR with S1/S2. No murmur, rubs, or gallops appreciated. ABDOMEN - Abdominal contour normal without pulsations or visible masses. BS normoactive all four quadrants. There is no upper quadrant abdominal tenderness. There is palpable tenderness noted in the patient's inferior quadrants. No rigidity. Abdomen is soft. No palpable masses, hepatosplenomegaly, or ascites noted. EXTREMITIES - No clubbing or peripheral cyanosis. No pretibial edema present. + 5/5 strength noted in UE/LE bilaterally. NEUROLOGIC - Cranial nerves II through XII grossly intact. PSYCH - A&O, and cooperates fully with examiner. Pt is very pleasant and interacts well with examiner. Medical Decision & Procedures ER Provider Diagnostic Interpretation: ULTRASOUND OF THE PELVIS CLINICAL HISTORY: Pelvic pain. COMPARISON STUDY: Pelvic ultrasound dated 02/28/2018. Pelvic CT dated 01/22/2018. TECHNIQUE: Real-time, grayscale, and color flow sonography of the pelvis is performed both transabdominally and endovaginally. Images are reviewed in the transverse and longitudinal planes. FINDINGS: Uterus: The uterus is normal in size and echotexture, measuring 7.1 x 2.8 x 3.7 cm. Inability and cyst is noted in the cervix. Endometrium: The endometrium is normal in appearance, and the endometrial stripe is normal in thickness measuring up to 0.3 cm. Ovaries: The ovaries are normal in size and morphology. The right ovary measures 3.8 x 1.9 x 2.6 cm and the left ovary measures 2.7 x 2.2 x 2.9 cm. There are small bilateral ovarian follicles. Normal Doppler waveforms are shown within both ovaries. Pelvis: There is no free fluid in the cul-de-sac. No concerning adnexal lesion is seen. IMPRESSION: Unremarkable sonographic assessment of the pelvis. Electronically signed by: Giancarlo Mix M.D. 04/17/2018 1:44 PM Dictated Date/Time: 04/17/2018 1:43 PM Laboratory Results Test 04/17/18 11:56 Urine Color DK YELLOW Urine Appearance CLEAR (CLEAR) Urine pH 5.0 (4.5-7.5) Urine Specific [place] 1.023 (1.000-1.030) Urine Protein NEG (NEG) Urine Glucose (UA) NEG (NEG) Urine Ketones NEG (NEG) Urine Occult Blood 1+ (NEG) Urine Nitrite NEG (NEG) Urine Bilirubin NEG (NEG) Urine Urobilinogen NEG (NEG) Urine Leukocyte Esterase NEG (NEG) Urine WBC (Auto) 1-5 /hpf (0-5) Urine RBC (Auto) 5-10 /hpf (0-4) Urine Hyaline Casts (Auto) 5-10 /lpf (0-5) Urine Epithelial Cells (Auto) >30 /lpf (0-5) Urine Bacteria (Auto) NEG (NEG) Urine Test NEG (NEG) Medications Administered Medications (Trade) Dose Ordered Sig/Stacey Route Start Time Stop Time Status Last Admin Dose Admin Oxycodone HCl (Roxicodone Immediate Rel Tab) 5 mg NOW STAT PO 04/17/18 11:33 04/17/18 11:35 DC 04/17/18 11:38 5 MG Medical Decision Patient was seen and evaluated as above in room B9. Review was performed of nursing notes and vital signs. After obtaining a thorough history and physical examination the above work up was performed. She has a history of ovarian cysts. She presents with lower pelvic pain which she notes is identical to when she was diagnosed with the ovarian cysts. She has been taking control recently. She notes some intermittent spotting. She is nontoxic on examination. I did review the [employer] drug monitoring system prior to administration of medication for pain here today. I did provide her a 5 mg oxycodone tablet prior to initiating the ultrasound. I also evaluate the urinalysis. At this time the ultrasound is markedly improved compared to previous and there are no cysts present. Her urine is not suggestive of infection. I question if her pain could be coming from cramping in the lower abdomen from the hormonal change. I did agree to provide her a short term prescription for pain today and today only for the next few days. I informed her that the emergency department is not capable of managing pain long-term, and with her improvement I would not expect her to still be experiencing pain for much longer. I informed her that repeat visits for this will likely not be able to result in pain medication scripts but certainly invite her back to the emergency department with any new/concerning symptoms. She was happy with this and verbalized understanding. I did not obtain blood work given that this was identical to previous presentations, she was nontoxic, displayed stable vital signs, and she also declined blood work. The patient was educated upon management, educated upon todays findings/results, educated upon symptoms in which to return, had questions answered prior to discharge, and was discharged home in good condition. In the evaluation and treatment of this patient the following differential diagnoses were entertained: Ovarian cyst, rupture, UTI, among others. Impression Primary Impression: Pelvic pain Departure Information Dispostion Home / Self-Care Condition GOOD Prescriptions Oxycodone Ir (Roxicodone Ir) 5 Mg Tab 1 TAB PO Q6 Y for Pain, #12 TAB For Initial Treatment Prov: Lon Humphries PA-C 04/17/18 Referrals No Doctor, Assigned (PCP) Patient Instructions My [facility] Additional Instructions You have been treated in the Emergency Department your Abdominal Pain. Laboratory results and imaging studies have ruled out any emergent causes for your abdominal pain which would warrant admission or surgery. You have been prescribed oxycodone immediate release to be used for pain control. This is a narcotic medication. You cannot drive or consume alcohol while on this medicine. This medicine should only be used for pain that cannot be controlled with lrac-lvj-efoaors pain medicines. For pain control, you can use the following [id number] medicines (if >12 yo): - Regular strength (325mg/tab) Tylenol (acetaminophen) 2 tabs every 4-6 hours as needed. Do not exceed 12 tablets in a 24 hour period. Avoid taking more than 3 grams (3000 mg) of Tylenol per day. This includes any other sources of acetaminophen you may take on a regular basis. - Regular strength (200 mg/tab) Advil (ibuprofen) 1-2 tabs every 4-6 hours as needed. Do not exceed a dose of 3200 mg per day. Drink plenty of water and stay well hydrated. As with any trip to the Emergency Department, you should follow-up with your Primary Care Provider from today's visit. Return to the emergency department if your symptoms persist despite treatment plan outlined above or if the following symptoms occur: increased fevers, chills , worsening nausea/vomiting, blood in your stool or urine.
--- NOTE | 2018-04-17 13:46 | DIAGNOSTIC IMAGING REPORT ---
ULTRASOUND OF THE PELVIS CLINICAL HISTORY: Pelvic pain. COMPARISON STUDY: Pelvic ultrasound dated 02/28/2018. Pelvic CT dated 01/22/2018. TECHNIQUE: Real-time, grayscale, and color flow sonography of the pelvis is performed both transabdominally and endovaginally. Images are reviewed in the transverse and longitudinal planes. FINDINGS: Uterus: The uterus is normal in size and echotexture, measuring 7.1 x 2.8 x 3.7 cm. Inability and cyst is noted in the cervix. Endometrium: The endometrium is normal in appearance, and the endometrial stripe is normal in thickness measuring up to 0.3 cm. Ovaries: The ovaries are normal in size and morphology. The right ovary measures 3.8 x 1.9 x 2.6 cm and the left ovary measures 2.7 x 2.2 x 2.9 cm. There are small bilateral ovarian follicles. Normal Doppler waveforms are shown within both ovaries. Pelvis: There is no free fluid in the cul-de-sac. No concerning adnexal lesion is seen. IMPRESSION: Unremarkable sonographic assessment of the pelvis. Electronically signed by: Giancarlo Mix M.D. 04/17/2018 1:44 PM Dictated Date/Time: 04/17/2018 1:43 PM
[2018-04-17] MEDS ORDERED: OXYC-90 PO (14:40)
[2018-04-17 14:57] VITALS: BP 130/79; PULSE 77; O2SAT 96
== END 2018-04-17 14:59 | disposition home or self-care (01) ==
LOC: C.EDB 10:58
DX: R10.2 Pelvic and perineal pain (principal); F17.200 Nicotine dependence, unspecified, uncomplicated